=== PATIENT | male | born 1990 | race Caucasian/White ===

== ENCOUNTER 2023-07-12 22:21 | Emergency (ER) | payer OTHER, BC, SELFPAY ==
[2023-07-12 22:24] VITALS: BP 160/107; PULSE 71; RESP 18; TEMP 36.6; O2SAT 99; BMI 29.8
--- NOTE | 2023-07-12 22:33 | PC.NURSE ---
pt presents to ED because pt [place] [facility] [place] a machine and cut tip of pointer finger on left hand with metal. tetanus up to date. pt cleaned up with soap and water and soaking at this time
--- NOTE | 2023-07-12 22:35 | ED_ITS ---
HPI - Wound/Laceration General Chief Complaint: Wound/Laceration Stated Complaint: FINGER INJURY-WC Time Seen by Provider: 07/12/23 22:34 Source: patient Mode of arrival: walk-in Limitations: no limitations History of Present Illness HPI narrative: cut tip of left index finger with a razor at work. States tetanus UTD. Believes last tetanus was 3-4 years ago. Denies weakness or finger numbness. No other injuries Onset (ago): minute(s) Related Data Allergies Allergy/AdvReac Type Severity Reaction Status Date / Time No Known Drug Allergies Allergy Verified 07/12/23 22:27 Review of Systems ROS Status of ROS 10 or more systems reviewed and unremarkable except as noted in history and below Exam Constitutional Vital Signs, click to edit/add: Last Vital Signs Temp 98 F 07/12/23 22:24 Pulse 71 07/12/23 22:24 Resp 18 07/12/23 22:24 BP 160/107 H 07/12/23 22:24 Pulse Ox 99 07/12/23 22:24 O2 Del Method Room Air 07/12/23 22:24 Common normals: no apparent distress, average body habitus, oriented x3, no limitations, healthy appearing, alert and well nourished Eye Common normals: EOMs intact bilaterally and conjunctivae normal Respiratory Common normals: normal respiratory effort, no retractions and no use of accessory muscles Extremity Other: small lac along side tip of left index finger. also cut thru small lateral side of the nail Neuro Common normals: oriented x3, CN's II-XII intact bilaterally, moves all extremiti es, no focal motor deficits and no sensory deficits noted Psych Appearance: grossly normal Course Vital Signs Vital signs: Vital Signs Temperature 98 F 07/12/23 22:24 Pulse Rate 71 07/12/23 22:24 Respiratory Rate 18 07/12/23 22:24 Blood Pressure 160/107 H 07/12/23 22:24 Pulse Oximetry 99 07/12/23 22:24 Oxygen Delivery Method Room Air 07/12/23 22:24 Temperature 98 F 07/12/23 22:24 Pulse Rate 71 07/12/23 22:24 Respiratory Rate 18 07/12/23 22:24 Blood Pressure 160/107 H 07/12/23 22:24 Pulse Oximetry 99 07/12/23 22:24 Oxygen Delivery Method Room Air 07/12/23 22:24 MDM - Wound/Laceration MDM Narrative Medical decision making narrative: presents with minor lac left index finger. Lac repaired without difficulty. No suspected bony involvement as the cut was on thee side of the finger Discharge Plan Discharge Chief Complaint: Wound/Laceration Clinical Impression: Laceration Patient Disposition: Home, Self-Care Instructions: Laceration (ED) Additional Instructions: have wound rechecked in 2-3 days and stitches removed in 10 Stand Alone Forms: Portal Instructions Referrals: Physician,Non-Staff, MD [Primary Care Provider] - 1 week Procedures ED Procedure Instructions Procedures Procedures: laceration 12mm tip of left index finger. small corner of nail cut thru also. 1% lido as a local. Cleaned with betadine. small piece of nail removed from nail bed. lac closed with # 3 5.0 nylon stitches tolerated well
[2023-07-12] MEDS: LIDOCAINE HCL 1% 100 MG/10 ML MDV INJ (22:56)
== END 2023-07-13 00:10 | disposition home or self-care (01) ==
PROVIDERS: Emergency Provider Internal Medicine; PCP Family Medicine
DX: S61.311A Laceration without foreign body of left index finger with damage to nail, initial encounter (principal); W26.8XXA Contact with other sharp object(s), not elsewhere classified, initial encounter
CPT/HCPCS: 12001; 99284